=== PATIENT | female | born 1960 | race Caucasian/White ===

== ENCOUNTER 2017-03-24 12:28 | Outpatient (CLI) | payer OTHER ==
--- NOTE | 2017-03-25 11:07 | MRI Report ---
EXAM: MR PELVIS WITH AND WITHOUT CONTRAST (MR FEMALE PELVIS) EXAM DATE: 03/24/2017 01:48 PM. CLINICAL HISTORY: Postmenopausal bleeding. COMPARISON: None. TECHNIQUE: Multiplanar breath-hold T1, T2 and DWI sequences obtained through the pelvis on an MR scan ner. Images obtained before and after administration of 6 mL Gadavist intravenous contrast. FINDINGS: Reproductive Organs: Uterus: The uterine fundus is shifted to the right pelvis. There is masslike focus in or abutting the fundus. The uterus is anteverted and measures 1.4 x 1.8 cm in the axial plane and 10 cm craniocaudal ly, including the mass in or abutting the fundus. The masslike lesion in or abutting the uterine fund us measured 2.4 x 3.4 x 3.7 cm with hypo-T1, hyper-T2 signal intensities and IV contrast enhancement. There are 3 myometrial nodules with iso-T1, hyper-T2 signal intensities and IV contrast enhancement, 2 in the right body fundal area, 0.3 x 0.4 cm and 0.4 x 0.6 cm, and one in the left fundal area of 0 .5 x 0.3 cm. The endometrial stripe measures 2.8 mm without abnormal enhancement. Right Ovary: No normal right ovary visualized. Left Ovary: The left ovary measures 2.2 x 1.1 x 0.9 cm. The left ovary appears normal. Bowel: The visualized portions of the small bowel, colon, and rectum appear normal. The appendix is n ormal. Bladder: The urinary bladder appears normal. Other: No inguinal adenopathy or hernia seen. IMPRESSION: 1. Endometrial thickness of 2.8 mm without nodule or abnormal enhancement. 2. Three myometrial nodules, the largest one of 0.6 cm, probable small uterine fibroids, otherwise to o small to further characterize. 3. A mass lesion in or abutting the uterine fundus, 3.7 cm in maximum dimension without normal right ovary visualized; the differential diagnosis of this abnormality would include uterine neoplasm versu s right ovarian solid tumor. 4. Negative for pelvic adenopathy or ascites. [facility] Referring Provider Line: [phone] SITE ID: [id number]
== END 2017-03-24 12:29 | disposition home or self-care (01) ==
LOC: DI 12:28
DX: N85.9 Noninflammatory disorder of uterus, unspecified (principal)
CPT/HCPCS: 72197; A9585